=== PATIENT | male | born 1990 | race Caucasian/White ===

== ENCOUNTER 2018-09-03 15:57 | Outpatient (CLI) | payer OTHER | END 2018-09-03 16:01 | disposition home or self-care (01) | LOC: RAD 15:57 | DX: J11.1 Influenza due to unidentified influenza virus with other respiratory manifestations (principal) ==

== ENCOUNTER 2020-05-05 22:23 | Emergency (ER) | payer OTHER ==
[~2020-05-05] VITALS: Ht 182.9 cm; Wt 81.6 kg
== END 2020-05-06 13:44 | disposition home or self-care (01) ==
LOC: ER 22:23
DX: A90 Dengue fever [classical dengue] (principal); Z03.818 Encounter for observation for suspected exposure to other biological agents ruled out; R53.83 Other fatigue